=== PATIENT | female | born 1995 | race African-American/Black ===

== ENCOUNTER 2021-12-19 17:24 | Inpatient (IN) | payer BC ==
[2021-12-19] MEDS ORDERED: hydrALAZINE 20 MG/ML VIAL SLOW IVP PRN ×4 (18:17→21:15)
[2021-12-19 19:00] LABS: Hemoglobin 10.9 g/dL (12.0-15.5); Mean Corpuscular HGB CONC 30.9 g/dL (32.0-36.0); Mean Corpuscular Hemoglobin 23.2 pg (27.0-33.0); Mean Corpuscular Volume 75.3 fl (81.6-98.3); Mean Platelet Volume 11.7 fl (7.4-10.4); Platelet Count 238 10x3/uL (150-450); RBC Distribution Width 15.7 % (11.5-14.5); Red Blood Cell (RBC) Count 4.69 10x6/uL (3.90-5.03); White Blood Cell (WBC) Count 7.9 10x3/uL (3.5-10.5)
[2021-12-19 19:05] LABS: ALT (SGPT) 10 U/L (8-55); AST (SGOT) 15 U/L (5-34); Albumin 3.5 g/dL (3.5-5.0); Alkaline Phosphatase 194 U/L (40-110); Anion Gap 12 mmol/L (10-20); BUN (Urea Nitrogen) 7 mg/dL (7.0-18.7); Bilirubin, Total 0.2 mg/dL (0.2-1.2); Calc. Creatinine Clearance 0 mL/min (70-130); Calcium 10.1 mg/dL (7.8-10.44); Carbon Dioxide 21 mmol/L (22-29); Chloride 106 mmol/L (98-107); Globulin 3.1 g/dL (2.4-3.5); Glucose 90 mg/dL (70-105); Potassium 4.1 mmol/L (3.5-5.1); Protein, Total 6.6 g/dL (6.0-8.3); Sodium 135 mmol/L (136-145)
[2021-12-19] MEDS ORDERED: Lorazepam 2 MG/ML VIAL SLOW IVP PRN (21:15)
[2021-12-19] MEDS ORDERED: Promethazine HCl 25 MG/ML VIAL IM PRN (21:15)
[2021-12-19] MEDS ORDERED: Ondansetron PF 4 MG/2 ML Vial IVP PRN (21:15)
[2021-12-19] MEDS ORDERED: Calcium Gluc 4.6 MEQ/10 ML (100 MG/ML) SLOW IVP PRN (21:15)
[2021-12-19] MEDS ORDERED: Magnesium Sulfate 20 gm/500 ml 20 GM/500 ML BAG IVPB SCH (21:15)
[2021-12-19] MEDS ORDERED: Labetalol HCl 100 MG/20 ML VIAL SLOW IVP PRN ×2 (21:15)
[2021-12-19] MEDS ORDERED: Magnesium Sulfate 20 gm/500 ml 20 GM/500 ML BAG ONE (21:16)
[2021-12-19 21:53] LABS: Syphilis Antibody Nonreactive (Nonreactive); Syphilis Antibody Index 0.02 S/CO (<1.00 Non-Reactive)
[2021-12-19 21:54] LABS: Hep B Surf Ag Non-Reactive S/CO (NonReactive)
[2021-12-19 21:57] LABS: HBSAg Index 0.14 S/CO (0-0.99)
[2021-12-19] MEDS ORDERED: Betamet Acet/Betamet Na Ph 30 MG/5 ML VIAL IM SCH (22:00)
[2021-12-20 04:06] LABS: SARS-CoV-2 NAA Rapid Test Not Detected (NotDetected)
[2021-12-20] MEDS: Magnesium Sulfate 20 gm/500 ml 20 GM/500 ML BAG IVPB SCH ×2 (06:31→14:30)
[2021-12-20] MEDS ORDERED: Naloxone HCl 0.4 mg/ml Vial IVP PRN ×2 (09:08)
[2021-12-20] MEDS ORDERED: HYDROmorphone 2 MG/ML VIAL SLOW IVP PRN (09:08)
[2021-12-20] MEDS ORDERED: Hydrocerin (Eucerin) Cream 120 gm Jar TOP PRN (09:08)
[2021-12-20] MEDS ORDERED: Promethazine HCl 25 MG/ML VIAL IM PRN (09:08)
[2021-12-20] MEDS ORDERED: Naloxone HCl 0.4 mg/ml Vial IV PRN (09:08)
[2021-12-20] MEDS ORDERED: Promethazine HCl 25 MG SUPP PR PRN (09:08)
[2021-12-20] MEDS ORDERED: diphenhydrAMINE 50 MG/ML VIAL IVP PRN (09:08)
[2021-12-20] MEDS ORDERED: Ondansetron HCl/PF 4 MG/2 ML Vial IVP PRN (09:08)
[2021-12-20] MEDS ORDERED: Fentanyl 100 MCG/2 ML VIAL SLOW IVP PRN (09:08)
[2021-12-20] MEDS ORDERED: Meperidine HCl/PF 25 MG/ML VIAL SLOW IVP PRN (09:08)
[2021-12-20] MEDS ORDERED: Ondansetron PF 4 MG/2 ML Vial IVP PRN (09:08)
[2021-12-20] MEDS ORDERED: Ketorolac Tromethamine 30 MG/ML VIAL IVP PRN (09:08)
[2021-12-20] MEDS ORDERED: Carboprost 250 MCG/ML AMP ONE (09:12)
[2021-12-20] MEDS ORDERED: Misoprostol 200 MCG TAB ONE (09:12)
[2021-12-20] MEDS ORDERED: Ketorolac Tromethamine 30 MG/ML VIAL IVP SCH (09:15)
[2021-12-20] MEDS ORDERED: Communication Order-Pharmacy FS SCH (09:15)
[2021-12-20] MEDS ORDERED: ceFAZolin 2 GM/Dextrose 50 ML 2 GM in Premix Bag 1 BAG IVPB SCH (09:30)
[2021-12-20] MEDS ORDERED: Bicitra 30 ML UDCUP PO PRN (09:30)
[2021-12-20] MEDS ORDERED: Famotidine/PF 20 mg/2ml Vial SLOW IVP PRN (09:30)
[2021-12-20] MEDS ORDERED: ceFAZolin 2 GM/Dextrose 50 ML IVPB ONE (09:30)
[2021-12-20] MEDS ORDERED: Phenylephrine 10 MG/ML VIAL ONE (09:34)
[2021-12-20] MEDS ORDERED: Ondansetron PF 4 MG/2 ML Vial ONE (09:34)
[2021-12-20] MEDS ORDERED: Fentanyl 100 MCG/2 ML VIAL ONE (09:34)
[2021-12-20] MEDS ORDERED: Morphine PF 10 MG/10 ML VIAL ONE (09:34)
[2021-12-20] MEDS ORDERED: Ketorolac Tromethamine 30 MG/ML VIAL ONE (09:38)
[2021-12-20 11:12] LABS: RapidComm Collect By CBN
[2021-12-20 11:14] LABS: RapidComm Collect By CBN; pH (Cord, venous) 7.343 (7.250-7.350)
[2021-12-20] MEDS ORDERED: NS w/ Oxytocin 30 units 500 ML ONE (12:13)
[2021-12-20] MEDS ORDERED: Measles/Mumps/Rubella 10 MCG/0.5 ML VIAL SC ONE (14:40)
[2021-12-20] MEDS ORDERED: Simethicone Chewable 80 MG TAB PO PRN (14:40)
[2021-12-20] MEDS ORDERED: Boostrix 0.5 ML (Tdap) VIAL IM ONE (14:40)
[2021-12-20] MEDS ORDERED: diphenhydrAMINE 25 MG CAP PO PRN (14:40)
[2021-12-20] MEDS ORDERED: Lanolin Ointment 7 GM TUBE TOP PRN (14:40)
[2021-12-20] MEDS ORDERED: Acetaminophen 325 MG TAB PO PRN (14:40)
[2021-12-20] MEDS ORDERED: Bisacodyl 10 MG SUPP PR PRN (14:40)
[2021-12-20] MEDS ORDERED: Varicella virus, LIVE 0.5 ML VIAL SC ONE (14:40)
[2021-12-20] MEDS ORDERED: Ferrous Sulfate 325 MG TAB PO SCH (21:00)
[2021-12-20] MEDS ORDERED: Docusate 100 MG CAP PO SCH (21:00)
[2021-12-20] MEDS ORDERED: HYDROcodone/Acetaminophen 5/325 mg Tablet PO PRN ×2 (21:15)
[2021-12-21] MEDS: Magnesium Sulfate 20 gm/500 ml 20 GM/500 ML BAG IVPB SCH (01:00)
[2021-12-21] MEDS ORDERED: Naloxone HCl 0.4 mg/ml Vial IVP PRN ×2 (04:27)
[2021-12-21] MEDS ORDERED: Promethazine HCl 25 MG/ML VIAL IM PRN (04:27)
[2021-12-21] MEDS ORDERED: Hydrocerin (Eucerin) Cream 120 gm Jar TOP PRN (04:27)
[2021-12-21] MEDS ORDERED: Acetaminophen 325 MG TAB PO PRN ×2 (04:27→12:29)
[2021-12-21] MEDS ORDERED: Ondansetron PF 4 MG/2 ML Vial IVP PRN (04:27)
[2021-12-21] MEDS ORDERED: Lactated Ringer's 500 ML IV PRN (04:27)
[2021-12-21] MEDS ORDERED: ePHEDrine Sulfate 50 MG/10 ML VIAL SLOW IVP PRN (04:27)
[2021-12-21] MEDS ORDERED: diphenhydrAMINE 50 MG/ML VIAL IVP PRN (04:27)
[2021-12-21] MEDS ORDERED: Communication Order-Pharmacy FS SCH (04:30)
[2021-12-21] MEDS ORDERED: Fentanyl 2 mcg/Bupivacaine 0.1% Cassette 100 ML EPIDURAL SCH (04:30)
[2021-12-21] MEDS ORDERED: Fentanyl 2 mcg/Bup 0.1% Cadd 100 ML ONE (04:31)
[2021-12-21] MEDS ORDERED: Bupivacaine 0.25% HCL 30 ML VIAL ONE (04:31)
[2021-12-21 05:19] LABS: Hemoglobin 10.2 g/dL (12.0-15.5); Mean Corpuscular HGB CONC 32.4 g/dL (32.0-36.0); Mean Corpuscular Hemoglobin 23.7 pg (27.0-33.0); Mean Corpuscular Volume 73.1 fl (81.6-98.3); Mean Platelet Volume 11.6 fl (7.4-10.4); Platelet Count 242 10x3/uL (150-450); RBC Distribution Width 15.7 % (11.5-14.5); Red Blood Cell (RBC) Count 4.31 10x6/uL (3.90-5.03); White Blood Cell (WBC) Count 11.9 10x3/uL (3.5-10.5)
[2021-12-21] MEDS ORDERED: Prenatal Vitamin 1 TAB PO SCH (09:00)
[2021-12-21] MEDS ORDERED: Boostrix 0.5 ML (Tdap) VIAL IM ONE (12:29)
[2021-12-21] MEDS ORDERED: hydrALAZINE 20 MG/ML VIAL SLOW IVP PRN (12:29)
[2021-12-21] MEDS ORDERED: Lanolin Ointment 7 GM TUBE TOP PRN (12:29)
[2021-12-21] MEDS ORDERED: Bisacodyl 10 MG SUPP PR PRN (12:29)
[2021-12-21] MEDS ORDERED: Labetalol HCl 100 MG/20 ML VIAL SLOW IVP SCH (12:45)
[2021-12-21] MEDS ORDERED: Ibuprofen 800 MG TAB PO SCH (14:00)
[2021-12-21] MEDS: Ibuprofen 800 MG TAB PO SCH ×2 (19:45→19:46)
[2021-12-21] MEDS: HYDROcodone/Acetaminophen 5/325 mg Tablet PO PRN (21:09)
[2021-12-21] MEDS: Simethicone Chewable 80 MG TAB PO PRN (21:35)
[2021-12-21] MEDS ORDERED: HYDROcodone/Acetaminophen 5/325 mg Tablet PO PRN (22:40)
[2021-12-22] MEDS: HYDROcodone/Acetaminophen 5/325 mg Tablet PO PRN ×4 (01:19→15:43)
[2021-12-22 06:29] LABS: Hemoglobin 9.7 g/dL (12.0-15.5); Mean Corpuscular Hemoglobin 23.6 pg (27.0-33.0); Mean Corpuscular Volume 73.7 fl (81.6-98.3); Platelet Count 241 10x3/uL (150-450); RBC Distribution Width 15.9 % (11.5-14.5); Red Blood Cell (RBC) Count 4.11 10x6/uL (3.90-5.03); White Blood Cell (WBC) Count 12.2 10x3/uL (3.5-10.5)
[2021-12-22] MEDS: Prenatal Vitamin 1 TAB PO SCH (08:41)
[2021-12-22] MEDS: Ibuprofen 800 MG TAB PO SCH ×2 (08:41→17:33)
[2021-12-23] MEDS: Ibuprofen 800 MG TAB PO SCH ×2 (00:51→08:50)
[2021-12-23] MEDS: Simethicone Chewable 80 MG TAB PO PRN (00:55)
[2021-12-23 07:50] VITALS: BP 134/82; TEMP 98.2
[2021-12-23] MEDS: Prenatal Vitamin 1 TAB PO SCH (08:50)
[2021-12-23] MEDS: HYDROcodone/Acetaminophen 5/325 mg Tablet PO PRN (09:50)
== END 2021-12-23 10:15 | disposition home or self-care (01) | DRG 788 ==
LOC: CSHLD/OP 17:24 → CSHLD 21:16 → UNDOADMIN 12-20 00:36 → CSHLD 12-20 00:36 → CSHPED 12-21 14:15
PROVIDERS: ADMIT Obstetrics & Gynecology; ATTEND Obstetrics & Gynecology
PROC: 10D00Z1 Extraction of Products of Conception, Low, Open Approach (ICD-10-PCS; principal; 2021-12-20)
PROC: 0UB90ZZ Excision of Uterus, Open Approach (ICD-10-PCS; 2021-12-20)
PROC: 3E0334Z Introduction of Serum, Toxoid and Vaccine into Peripheral Vein, Percutaneous Approach (ICD-10-PCS; 2021-12-20)
DX: O14.14 Severe pre-eclampsia complicating childbirth (principal); Z20.822 Contact with and (suspected) exposure to COVID-19; Z37.0 Single live birth; Z3A.35 35 weeks gestation of pregnancy; O36.5930 Maternal care for other known or suspected poor fetal growth, third trimester, not applicable or unspecified; O99.892 Other specified diseases and conditions complicating childbirth; O76 Abnormality in fetal heart rate and rhythm complicating labor and delivery; D25.2 Subserosal leiomyoma of uterus; O26.893 Other specified pregnancy related conditions, third trimester; Z67.41 Type O blood, Rh negative
CPT/HCPCS: 36415; 51702; 80053; 82570; 82805; 84156; 84550; 85027; 85461; 86780; 86850; 86870; 86900; 86901; 86922; 87340; 88305; 88307; 90384; 96372; 99285; J0360; J0702; J1200; J1885; J2274; J2370; J2405; J3010; J3475; U0002